=== PATIENT | male | born 1940 | race Caucasian/White ===

== ENCOUNTER 2020-07-12 16:26 | Inpatient (IN) | payer MEDICARE, OTHER ==
[~2020-07-12] VITALS: Ht 172.7 cm; Wt 54.0 kg
[2020-07-13 06:24] VITALS: BP 94/52
[2020-07-13 08:48] VITALS: BP 82/48
[2020-07-13 10:00] VITALS: BP 102/72
--- NOTE | 2020-07-13 11:49 | NUR ---
1130 RESUMMED CARE FROM OVERNIGHT SHIFT THIS AM, PATIENT IN ROOM RESTING QUIETLY. PATIENT ATE BREKAFAST TOOK MEDICATION WITHOUT INCIDENCE. PATIENT ALERT ORIENTED TO SELF SOME CONFUSION. PATIENT DENIES SI/HI/AH/VH AT PRESENT PATIENTS ABDOMEN SOFT ROUND BOWEL SOUNDS PRESENT. PATIENTS LUNGS CLEAR PATIENT CALM COOPERATIVE PARTICIPATED IN GROUPS. WILL CONTINUE TO MONITOR PATIENT FOR SAFETY AND BEHAVIORS.
--- NOTE | 2020-07-13 12:35 | NUR ---
ABDOULAYE was able to complete part of the assessment with the Pt. Pt is hard to understand at times due to not having his dentures in. Pt was calm but confused. Pt is aware he struggles with his memory stating " sometimes I forget". Pt was only oriented to self and place. Pt denied SI/HI. Pt denied AH/VH. Pt does have a guardian Dottie De Souza, . Abdoulaye was able to speak with Dottie over the phone. Dottie stated justin Pt has lived at [facility] since November 2019. Prior Pt lived in and apartment with a girlfriend. The Pt was no longer able to care for himself and was placed in the NH. Pt does not have a hx of aggression and has no prior incidents of agression. 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 ABDOULAYE provided contact information to Dottie and emailed welcome information to [email or web address] ABDOULAYE team will continue to follow
[2020-07-13 19:45] VITALS: BP 123/87
--- NOTE | 2020-07-14 05:25 | NUR ---
Assumed care of pt @ 1900. Pt calm et cooperative this shift. Took medications whole without difficulty. Ambulates the halls with assistance of W/C. GLENDA. Health assessment with no abnormalities noted this shift. Denies SI/HI/AVH at present time. Socialized in dayroom with peers until HS. Currently resting in bed with eyes closed. Will continue to monitor per unit protocol.
[2020-07-14 08:00] VITALS: BP 107/63
[2020-07-14 11:38] VITALS: BP 107/63
--- NOTE | 2020-07-14 13:15 | NUR ---
1315 RESUMMED CARE FROM OVERNIGHT THIS AM, PATIENT IN DAY ROOM SITTING QUIET. PATIENT IS VERY PLEASANT COPERATIVE DENIES SI/HI/AH/VH AT PRESENT PATIENT HAS NOT BEEN AGGRESSIVE AT ALL. PATIENT ABDOMEN SOFT FLAT BOWEL SOUNDS PRESENT LUNGS SLIGHT CRACKLE IN LOWER AND UPPER LOBE. PATIENT HAS RESPIRATORY FAILURE GETS BREATHING TREATMENTS. PATIENT PARTICIPATES IN GROUPS SKIN INTACT WILL CONTINUE TO MONITOR PATIENT FOR SAFETY AND BEHAVIORS.
--- NOTE | 2020-07-14 16:52 | NUR ---
ABDOULAYE faxed updated to [facility]
[2020-07-14 19:22] VITALS: BP 107/75
--- NOTE | 2020-07-15 05:29 | NUR ---
Assumed care of pt @ 1900. Pt calm et cooperative most of shift. Took medications whole without difficulty. Ambulates the halls with assistance of W/C. GLENDA. Health assessment with no abnormalities noted at present time. Denies SI/HI/AVH at present time. Socialized with peers in dayroom until HS. Pt had two episodes of loose stools this shift et became greatly agitated that his bed alarm was going off every time that he got out of bed. Pt thought that it was his chair alarm et he ripped it off the cord et threw it on the floor. When it was explained to him that the bed alarm notifies us that he may need assistance, pt just screamed that he wants "out of this f'in place tonight". Informed pt that he will need to speak with provider in the morning et that the doors to the unit remain locked. Pt then stated that he would "kick the damn doors in". Currently resting in bed with eyes closed. Will continue to monitor per unit protocol.
[2020-07-15 08:34] VITALS: BP 120/61
--- NOTE | 2020-07-15 14:55 | NUR ---
Assumed pt care at 0700. pt was in his room resting. Assessment completed and VSS. pt took his medication crushed with apple sauce without difficulties. pt ambulates with w/c around the unit. Pt participated in groups. AT this time pt is calm and co-operative with care. pt Denies si/hi. pt denies pain. NO aggressiveness noted. will continue to monitor pt.
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
[2020-07-15 19:23] VITALS: BP 126/84
--- NOTE | 2020-07-16 05:46 | NUR ---
Assumed care of pt @ 1900. pt calm et cooperative this shift. Took medications whole without difficulty. Ambulates the halls with assistance of W/CTrino DOSHI. Health assessment with no abnormalities noted this shift. Denies SI/HI/AVH at present time. Socialized with peers in dayroom until HS. Currently resting in bed with eyes closed. Will continue to monitor per unit protocol.
[2020-07-16 08:13] VITALS: BP 116/64
[2020-07-16 09:40] VITALS: BP 116/64
--- NOTE | 2020-07-16 10:42 | NUR ---
1030 RESUMMED CARE FROM OVERNIGHT SHIFT THIS AM, PATIENT IN DAY ROOM SITTING QUIET. PATIENT ATE BREAKFAST TOOK MEDICATION WITHOUT INCIDENCE PATIENT DENIES SI/HI/AH/VH AT PRESENT. PATIENT ALERT ORIENTED TO SELF AND PLACE PATIENTS ABDOMEN SOFT BOWEL SOUNDS PRESENT. PATIENT HAS SOME CRACKLES UPPER LOWER LUNGS PATIENT GET RESPIRATORY TREATMENTS. PATIENT CALM COOPERATIVE PARTICIPATES IN GROUPS. WILL CONTINUE TO MONITOR PATIENT FOR SAFETY AND BEHAVIORS.
--- NOTE | 2020-07-16 16:47 | NUR ---
ABDOULAYE sent updates for patient. Patient is concerned that his payee is spending his money and not caring for his bacis needs. Patient reported he doesn't have shoes (71/2) Patient reported not enough food in his apartment. ABDOULAYE explained to patient ABDOULAYE will follow up.
[2020-07-16 19:36] VITALS: BP 127/79
--- NOTE | 2020-07-17 04:18 | NUR ---
Assumed care of patient this pm shift. Patient is difficult to understand. Cusses frequently. Is easily agitated. Can be redirected. Alert and oriented to self and place. Takes medications whole with thin fluids. Is considered a falls risk and ambulates via wheel chair. Patient states that he had a bowel movement this evening. Continent of bowel and bladder. Assessment shows no signs of acute distress. Affect is blunted. We will continue to monitor per hospital policy.
[2020-07-17 09:42] VITALS: BP 126/76
[2020-07-17 11:20] VITALS: BP 127/79
--- NOTE | 2020-07-17 13:13 | NUR ---
1310 RESUMMED CARE FROM OVERNIGTH SHIFT THIS AM, PATIENT IN DAY ROOM IN QUIET. PATIENT ATE BREAKFAST TOOK MEDICATION WITHOUT INCIDENCE PATIENT DENIES SI/HI/AH/VH AT PRESENT. PATIENT ORIENTED TO SELF AND PLACE SOMETIMES YOU CANNOT UNDERSTAND PATIENT. PATIENT CALM COOPERATIVE AND CAN GET OUT OF BED AND GO TO THE BATTHROOM ALONE. HOWEVER THE PATIENT IS A FALLS RISK AND DOES NOT LIKE TO HAVE HIS BED ALARM ON. I EXPLAINED TO PATIENT WHY THE BED ALARM AHS TO BE ON AT ALL TIMES. PATIENTS ABDOMEN SOFT BOWEL SOUNDS PRESENT LUNGS HAS SOME CRACKLES UPPER AND LOWER LOBES. PATIENT HAD COPD PATIENT COOPERATES IN GROUPS WILL CONTINUE TO MONITOR PATIENT FOR SAFETY AND BEHAVIORS.
[2020-07-17 20:00] VITALS: BP 92/60
--- NOTE | 2020-07-18 03:25 | NUR ---
ASSESSMENT: PT REMAIN ALERT AND ORIENT TIMES TWO, FORGETFUL AT TIMES. UP WITH STEADY GAIT TO BR, SBA DID HAVE INCONT TO LOOSE STOOL TIMES THREE. COULD USE IMMODIUM. VSS, AFEBRILE. PT STAYED IN ROOM ALL NIGHT. DENIES PAIN. NO DISPLAY OF AGRESSION TOWARDS STAFF, DID STATE THAT HE HATED THE SOCKS TWICE. SLOW PROGRESS TOWARDS DC GOALS., WILL CONTINUE TO MONITOR.
[2020-07-18 08:52] VITALS: BP 123/72
--- NOTE | 2020-07-18 10:17 | NUR ---
Alert and orientated to name and situation. [place] self around unit in WC. Speech slightly garbled at times. Calm, cooperative and compliant with meds. Breath sounds clear. Reg HR auscultated. Color pink with brisk capillary refill and palpable peripheral pulses. Independent with voiding, small amt yellow urine on pad. Active bowel sounds over soft, flat abdomen. Able to stand without diff. Lidocaine patch placed on R lower back per order. No verbalizations of pain. Sitting listening in group, no s/o distress.
[2020-07-18 19:27] VITALS: BP 109/71
[2020-07-19 04:33] VITALS: BP 109/71
--- NOTE | 2020-07-19 06:15 | NUR ---
Assumed care for pt at 1900. Pt has remained in his room resting this entire shift. Pt is calm and cooperative with nursing assessment and takes medications whole with honey-thickened liquids. Lidocaine patch removed at time of HS assessment. Pt denies pain. Pt denies SI/HI. PCT reports this AM pt has had diarrhea/loose stools x 2 this shift. Pt on 12 minute checks for safety. Will continue to monitor for moods/behavior and for safety per unit/hospital protocol.
[2020-07-19 10:35] VITALS: BP 125/83
[2020-07-19 19:39] VITALS: BP 91/61
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
[2020-07-20 02:00] VITALS: BP 91/61
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
--- NOTE | 2020-07-20 06:45 | NUR ---
Pt refused lab draw this morning.
[2020-07-20 08:30] VITALS: BP 130/84
--- NOTE | 2020-07-20 09:00 | NUR ---
PT TOLERATING DIET AND HONEY THICK LIQUIDS. PT LUNGS CLEAR. PT DOES HAVE A COUGH AT TIMES AFTER DRINKING. PT TOOK ALL MEDS THIS AM WITHOUT ANY ISSUES. WILL ASK PHARMACY IF SOME MEDS CAN BE CHANGED TO NOON. PT AGREED WITH THAT. PT SITS IN W/C AND DOESN'T TRY TO GET OUT OF CHAIR ON OWN. HARD TO UNDERSTAND PT AT TIMES, PT IS TOOTHLESS ALSO.
[2020-07-20 09:43] VITALS: BP 130/84
[2020-07-20 10:10] LABS: ALBUMIN 3.6 g/dL (3.4-5.0); CALCIUM 9.3 mg/dL (8.5-10.1); POTASSIUM 4.1 mmol/L (3.5-5.1); TOTAL BILIRUBIN 0.9 mg/dL (0.2-1.0); TOTAL PROTEIN 7.6 g/dL (6.4-8.2)
--- NOTE | 2020-07-20 14:14 | NUR ---
RT Progress Note- Sarabjit has been active in the milieu and recreation therapy groups. He is friendly to peers and often laughs and shares stories. He has expressed frustration with particular things in his life and at times uses explicit language but can easily be redirected to express his frustrations appropriately. SPACE ENGINEER will continue to encourage Sarabjit's participation in the milieu and groups.
--- NOTE | 2020-07-20 16:43 | NUR ---
PT HAD A GOOD DAY TODAY, JOKING WITH STAFF AND WALKED WITH THERAPY TODAY AROUND THE UNIT WITH W/C BEHIND HIM. PT TOLERATED ACTIVITY WELL. PT ATTENDING GROUPS AND TAKING PERSCRIBED MEDICATION.
[2020-07-20 19:10] VITALS: BP 92/58
--- NOTE | 2020-07-21 02:41 | NUR ---
Assumed care on 09/15/18 @ 1900, in bed, very cranky, complaining about things he wants that he is not getting. When his complaint was explored, he wanted socks. It turns out that he had socks on. He stated well, that was someones fault. Encouraged to get out of bed and have a snack, which he did with x1 assist. Propelled himself independently in his wheel chair. The only time I saw him smile was when another patient was speaking rudely to a staff member, and he laughed at that. Took his meds whole and drank honey thick liquids, which he tolerated well.
[2020-07-21 08:28] VITALS: BP 109/78
--- NOTE | 2020-07-21 12:55 | NUR ---
ABDOULAYE spoke with Dionne at [facility] concerning discharge of Pt on 07/24/20. Dionne would like to see notes for over the weekend and talk on Friday cocnerning transportation. ABDOULAYE faxed over ST and PT notes to the facility. ABDOULAYE will continue to follow.
--- NOTE | 2020-07-21 17:27 | NUR ---
Alert and orientated to person and place but not to time or situation. Irritable at times, very pleasant at other times. Denies SI/HI. Calm, cooperative and compliant. Very concerned about frequent stools. Large yellow brown formed stool be toilet in AM. Dr. Hill notified, no orders. Breath sounds clear. Reg HR auscultated. Color pink with brisk capillary refill and palpable peripheral pulses. Independent with voiding. Active bowel sounds over soft, rounded abdomen. Reg, steady gait in room, uses WC to get around in unit. Currently sitting in dining room without s/o distress.
[2020-07-21 20:06] VITALS: BP 132/87
[2020-07-21 21:35] VITALS: BP 132/87
--- NOTE | 2020-07-21 23:54 | NUR ---
PT AOX4 WITH INTERMITTENT FORGETFULNESS. PT NOTABLY DIFFICULT TO UNDERSTAND, HISTORY OF DYPHASIA. PT REPORTS 5/10 ACHY PAIN IN BOTH FEET. PT DENIES SOB WHILE ON ROOM AIR. PT RECEIVING PRN PO APAP Q6HR WITH PRN PO IBUPROFEN Q6HR AVAILABLE. PT TOLERATING PO INTAKE OF HONEY THICKENED FLUIDS AND PUREED DIET WITHOUT ISSUE. PT WITHOUT NAUSEA OR EMESIS. PT AMBULATING WITH WALKER AND STANBY ASSIST IN ROOM AND TO BATHROOM. PT ENCOURAGED TO NOTIFY STAFF FOR ALL NEEDS, BED NURSE CALL BUTTON WORKING APPROPRIATELY, BED LOCKED IN LOWEST POSITION, BED ALARM ON, FREQUENT MONITORING WILL CONTINUE.
[2020-07-22 07:45] VITALS: BP 104/61
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
--- NOTE | 2020-07-22 19:34 | NUR ---
Alert and orientated X2. Denies SI/HI, pain this AM. Refused to go to group this AM, wanted to stay in bed d/t being tired. Refused to get up for lunch stating that he had pain all over ranked it a 4. Pain resolved with Tylenol. Did eat lunch and then participate in groups in afternoon. Breath sounds clear. Reg HR auscultated. Color pink with brisk capillary refill and palpable peripheral pulses. Independent with voiding. Active bowel sounds over soft, rounded abdomen. States he had BM this AM. Up ambulating in room without assistance, used WC and self propels t/o unit. Currently in day room with peers without s/o distress.
[2020-07-22 19:43] VITALS: BP 114/82
--- NOTE | 2020-07-23 03:49 | NUR ---
INDEPENDENT TO BATHROOM, REQUESTED A CHANGE OF CLOTHES DUE TO PERCEIVED MOISTURE TO THEM. NO FURTHER PAIN NOTICED, STATES HAD 2 BM TODAY. ENCOURAGED TO PARTICIPATE IN GROUP TOMORROW IF NOT TIRED AGAIN, SLEEPING WELL "SO IT SHOULDN'T BE A PROBLEM" APHASIA MAKES PATIENT OTHERWISE HARD TO UNDERSTAND
[2020-07-23 10:12] VITALS: BP 107/67
--- NOTE | 2020-07-23 15:20 | NUR ---
SW sent updates to nursing facility.
--- NOTE | 2020-07-23 15:42 | NUR ---
PATIENT HAS BEEN UP ON UNIT. ABLE TO ATTEND TO OWN ADL'S BUT NEEDS ENCOURAGEMENT. NO AGITATION OR AGGRESSION OBSERVED. HAS COUGH OFF AND ON WHEN DRINKING OR EATING. CONTINUES TO USE THICKENED FLUIDS TO TAKE MEDICATIONS AND DRINK. PATIENT MAKES NEEDS KNOWN BUT DIFFICULT TO UNDERSTAND DUE TO APHASIA. HAD TWO BOUTS OF DIARRHEA. INFORMED MACHINE ASSEMBLER SUPERVISOR PA AND PLACED ORDER FOR LOPERAMIDE GIVEN FIRST DOSE AT 1410 2 MG. - WILL CONTINUE TO MONITOR PATIENT FOR ANY CHANGES IN BOWEL MOVEMENTS. PATIENT MANUVERS AROUND IN WHEELCHAIR AND TRANSFERS INDEPENDENTLY. ABLE TO WALK WITH ASSISTANCE OR STAND BY. PATIENT HAD GOOD APPETITE -
[2020-07-23 18:10] VITALS: BP 113/80
--- NOTE | 2020-07-24 04:37 | NUR ---
Assumed care of patient this pm shift. Patient in his room during the assessment. Patient is fiesty and swears alot but is overall compliant with cares. Takes medications whole with thin fluids. Ambulates with wheelchair. Falls precautions in place. Denies pain. Denies hi/si. Assessment shows no signs of acute distress. We will continue to monitor per hospital policy.
[2020-07-24 10:55] VITALS: BP 117/85
[2020-07-24] MEDS ORDERED: LIPITOR10 MG PO (12:51)
[2020-07-24] MEDS ORDERED: ARICEPT 5 MG TAB5 MG PO (12:51)
[2020-07-24] MEDS ORDERED: NORVASC5 MG PO (12:51)
[2020-07-24] MEDS ORDERED: DEPAKOTE SPRIN125 MG PO (12:52)
[2020-07-24] MEDS ORDERED: ASPIR 8181 MG PO (12:52)
[2020-07-24] MEDS ORDERED: TRAZODONE HCL100 MG PO (12:53)
[2020-07-24] MEDS ORDERED: ZINC SULFATE 2220 MG PO (12:53)
[2020-07-24] MEDS ORDERED: NEURONTIN 300M300 M2 PO (12:53)
[2020-07-24] MEDS ORDERED: PROBIOTIC1 EAC1 PO (12:54)
[2020-07-24] MEDS ORDERED: PEPCID20 MG PO (12:54)
[2020-07-24] MEDS ORDERED: LIDOPATCH1 EACH TRANSDERM (12:55)
[2020-07-24] MEDS ORDERED: VITAMINC500 PO (12:55)
[2020-07-24] MEDS ORDERED: PULMICORT0.5 MG/22 INH (12:56)
[2020-07-24] MEDS ORDERED: MULTIVITAMINS PO (12:56)
[2020-07-24] MEDS ORDERED: IPRAT-ALBUT 0.5-3 ML INH (12:57)
[2020-07-24] MEDS ORDERED: IPRATROPIU0.2 MG/1 M INH (12:57)
--- NOTE | 2020-07-24 14:44 | NUR ---
Assumed Pt care at 0700. pt was in is room resting. pt was alert and oriented to self and place. Pt denies SI/HI. PT DENIES Pain. Assessment are completed and VSS. Pt ambulates with a W/C. pt coughs during meals. pt takes his meds whole. Pt was irritated over a jacket, pt claimed he came with. Inventory was conducted by conventional underwriter and PAOLA Lauren. Pt was discharge at 1350. Pt was transported via w/c with conventional underwriter and Secure transport personnel to front entrance in a stable condition. pt belongings with security were collected by Pt and conventional underwriter. Pt was transported to [facility] by secure transport. Report was to call Onur Simmons at 1414.
== END 2020-07-24 13:50 | DRG 884 ==
LOC: SBH
PROVIDERS: ADMIT Psychiatry & Neurology Psychiatry; ATTEND Psychiatry & Neurology Psychiatry
DX: F03.91 Unspecified dementia, unspecified severity, with behavioral disturbance (principal); U07.1 COVID-19; F32.9 Major depressive disorder, single episode, unspecified; I10 Essential (primary) hypertension; E78.5 Hyperlipidemia, unspecified; G89.29 Other chronic pain; J44.9 Chronic obstructive pulmonary disease, unspecified; Z86.16 Personal history of COVID-19; Z86.73 Personal history of transient ischemic attack (TIA), and cerebral infarction without residual deficits
CPT/HCPCS: 10880

== ENCOUNTER 2020-07-12 17:31 | Emergency (ER) | payer MEDICARE, OTHER ==
[~2020-07-12] VITALS: Ht 167.6 cm; Wt 61.2 kg
[2020-07-12 17:57] LABS: ABSOLUTE NEUTROPHILS 4.6 thou/uL (1.4-8.2); BASOPHILS 1.5 % (0.0-2.0); EOSINOPHILS 6.8 % (0.0-3.0); HEMATOCRIT 41.9 % (42.0-52.0); HEMOGLOBIN 13.5 gm/dL (14.0-18.0); LYMPHOCYTES 29.9 % (24.0-44.0); MCH 30.8 pg (26.0-34.0); MCHC 32.3 g/dL (28.0-37.0); MCV 95.5 fL (80.0-100.0); MONOCYTES 9.9 % (1.0-8.0); PLATELET COUNT 297 thou/uL (150-400); POLYS 51.9 % (36.0-66.0); RBC 4.39 mil/uL (4.50-6.00); RDW 15.2 % (10.5-14.5); WBC 8.9 thou/uL (4.0-11.0)
[2020-07-12 18:02] LABS: CALCIUM 9.4 mg/dL (8.5-10.1); POTASSIUM 5.2 mmol/L (3.5-5.1)
[2020-07-12 18:09] LABS: ALBUMIN 3.3 g/dL (3.4-5.0); TOTAL BILIRUBIN 0.6 mg/dL (0.2-1.0); TOTAL PROTEIN 6.7 g/dL (6.4-8.2)
[2020-07-12 18:17] LABS: URINE BILIRUBIN NEGATIVE (Negative); URINE BLOOD NEGATIVE (Negative); URINE CLARITY CLEAR; URINE COLOR YELLOW; URINE GLUCOSE-RANDOM* NEGATIVE (Negative); URINE KETONES NEGATIVE (Negative); URINE LEUKOCYTES-REFLEX TRACE (Negative); URINE NITRITE-REFLEX NEGATIVE (Negative); URINE PROTEIN (DIPSTICK) NEGATIVE (Negative); URINE UROBILINOGEN 0.2 E.U./dl (0.2-1.0)
[2020-07-13 04:29] VITALS: BP 94/54
--- NOTE | 2020-07-13 07:17 | EKG ---
[address] [address] ELECTROCARDIOGRAM REPORT Name: DAVID MERCHANT Room #: EDMOND Vazquez#: [id number] Admission: 07/12/20 Attend Phys: Discharge: 07/13/20 Date of : 44 Report #: [id number] [facility] ED Test Date: 2020-07-12 Test Time: 17:52:13 Pat Name: DAVID MERCHANT Department: Room: Gender: M Sanitation Officer: denai : 1940 Requested By: Elaine Santiago Order Number: [id number] MD: Rob Alfaro Measurements Intervals [place] Rate: 68 P: 3 NE: 176 QRS: 18 QRSD: 96 T: 57 QT: 397 QTc: 423 Interpretive Statements Sinus rhythm No previous ECG available for comparison Electronically Signed On 07-13-2020 7:16:54 CABLEMAN by Rob Alfaro [email or web address] <ELECTRONICALLY SIGNED> By: Rob Alfaro MD, [facility] 07/13/20 [id number] Rob Alfaro MD, FACC /EPI
== END 2020-07-13 04:43 | disposition still patient (30) ==
LOC: ER 17:31
PROVIDERS: Emergency Medicine
DX: U07.1 COVID-19 (principal); R45.6 Violent behavior; S50.11XA Contusion of right forearm, initial encounter; I10 Essential (primary) hypertension; J44.9 Chronic obstructive pulmonary disease, unspecified; F32.9 Major depressive disorder, single episode, unspecified; W50.3XXA Accidental bite by another person, initial encounter; Y93.89 Activity, other specified; Y92.128 Other place in nursing home as the place of occurrence of the external cause; Y99.8 Other external cause status

== ENCOUNTER → 2021-07-24 | Outpatient (CLI) | payer MEDICARE, OTHER ==
[~2021-07-24] MED LIST: ARICEPT 5 MG TAB5 MG PO; ASPIR 8181 MG PO; DEPAKOTE SPRIN125 MG PO; IPRAT-ALBUT 0.5-3 ML INH; IPRATROPIU0.2 MG/1 M INH; LIDOPATCH1 EACH TRANSDERM; LIPITOR10 MG PO; MULTIVITAMINS PO; NEURONTIN 300M300 M2 PO; NORVASC5 MG PO; PEPCID20 MG PO; PROBIOTIC1 EAC1 PO; PULMICORT0.5 MG/22 INH; TRAZODONE HCL100 MG PO; VITAMINC500 PO; ZINC SULFATE 2220 MG PO
== END ==
LOC: CAT 07-19 12:07
PROVIDERS: ATTEND Internal Medicine
DX: M48.56XA Collapsed vertebra, not elsewhere classified, lumbar region, initial encounter for fracture (principal); M48.061 Spinal stenosis, lumbar region without neurogenic claudication; J43.9 Emphysema, unspecified; I70.0 Atherosclerosis of aorta; K57.30 Diverticulosis of large intestine without perforation or abscess without bleeding